=== PATIENT | male | born 1940 | race Caucasian/White ===

== ENCOUNTER 2017-12-08 17:58 | Inpatient (IN) | payer OTHER, BC ==
--- NOTE | 2017-12-08 18:09 | PDOC ---
Rapid Medical Evaluation Chief Complaint: Revisit, Lab Variance Time Seen by Provider: 12/08/17 18:06 Medical Evaluation: Allergies Allergy/AdvReac Type Severity Reaction Status Date / Time No Known Drug Allergies Allergy Verified 12/08/17 18:06 12/08/17 18:07 Pt c/o: sent from dr overton for sodium of 117, pt has no complaints , Pt on brief exam: vss Pt ordered for: labs, ekg , urine pt to proceed to the ED: Discharge Disposition - Diagnosis Hyponatremia - Referrals - Patient Instructions - Post Discharge Activity
[2017-12-08 18:11] VITALS: BMI 25.1
--- NOTE | 2017-12-08 18:47 | PDOC ---
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 According to the patient his sodium high. On presentation the patient has no complaints. He does state that a few weeks ago he fell and hit his head, suffering a concussion, for which he saw his PCP and had an outpatient Head CT that was negative. He does note that he started a new diuretic recently and has been urinating more that normal. The patient denies chest pain, shortness of breath, headache and dizziness. Denies fever, chills, nausea, vomiting, diarrhea or constipation. Denies dysuria , urgency and hematuria. Allergies: None Past surgical history: partial hip replacement, appendectomy Social History: No alcohol, tobacco or drug use reported PMD: Dr. 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) - Any Emergencies please call [phone] <Zander Sterling - Last Filed: 12/09/17 01:07> <Jony Padilla - Last Filed: 12/09/17 01:44> - General Chief Complaint: Revisit, Lab Variance Stated Complaint: PCP SENT/FALL Time Seen by Provider: 12/08/17 18:06 Past History <Zander Sterling - Last Filed: 12/09/17 01:07> - Past Medical History Anemia: No Asthma: No Cancer: No Cardiac Disorders: No CVA: No COPD: No CHF: No Dementia: No Diabetes: Yes GI Disorders: No Disorders: No HTN: Yes Hypercholesterolemia: No Liver Disease: No Seizures: No Thyroid Disease: No - Surgical History Appendectomy: Yes Cardiac Surgery: (angiogram- neg) Orthopedic Surgery: Yes (partial hip replacement) - Suicide/Smoking/Psychosocial Hx Smoking History: Unknown if ever smoked Hx Alcohol Use: No Drug/Substance Use Hx: No Substance Use Type: None <Jony Padilla - Last Filed: 12/09/17 01:44> - Past Medical History Allergies/Adverse Reactions: Allergies Allergy/AdvReac Type Severity Reaction Status Date / Time No Known Drug Allergies Allergy Verified 12/08/17 18:06 Home Medications: Ambulatory Orders Allopurinol [Zyloprim -] 100 mg PO DAILY 10/11/15 Aspirin [ASA -] 81 mg PO DAILY 10/11/15 Atorvastatin Ca [Lipitor] 80 mg PO HS 10/11/15 Cholecalciferol (Vitamin D3) [Vitamin D3] 3,000 unit PO DAILY 10/11/15 Docusate Sodium [Colace -] 300 mg PO HS 10/11/15 Ferrous Sulfate [Feosol] 325 mg PO BID 10/11/15 Insulin Glargine,Hum.rec.anlog [Lantus Solostar PEN (NF)] 21 units SQ HS Insulin Lispro [Humalog] 0 unit SQ QID PRN 10/11/15 Lisinopril [Zestril] 20 mg PO DAILY 10/11/15 Review of Systems - Review of Systems Able to Perform ROS?: Yes Comments:: 12/08/17 19:26 CONSTITUTIONAL: No fever, no chills, no fatigue EYES: No visual changes ENT: No ear pain, no sore throat CARDIOVASCULAR: No chest pain, no palpitations RESPIRATORY: No cough, no SOB GI: No abdominal pain, no nausea, no vomiting, no constipation, no diarrhea GENITOURINARY: No dysuria, no frequency, no hematuria MUSKULOSKELETAL: No backpain, no joint pain, no myalgias SKIN: No rash NEURO: No headache <Zander Sterling - Last Filed: 12/09/17 01:07> *Physical Exam - Vital Signs Last Vital Signs Temp Pulse Resp BP Pulse Ox 81 18 151/64 100 12/08/17 18:10 12/08/17 18:10 12/08/17 18:10 12/08/17 18:10 <Zander Sterling - Last Filed: 12/09/17 01:07> - Vital Signs Last Vital Signs Temp Pulse Resp BP Pulse Ox 81 18 151/64 100 12/08/17 18:10 12/08/17 18:10 12/08/17 18:10 12/08/17 18:10 - Physical Exam Comments: 12/09/17 01:42 Patient is awake and alert, frail-appearing, in no distress Normocephalic; + and approximately 1 cm scab is noted to the left parieto- occipital area without bony crepitus or step-off; Extraocular movements are intact bilaterally; right pupil is 1 mm and poorly reactive, left pupil is 2 mm and reactive; CTA RRR, 4/6 holosystolic murmurs noted Abdomen is soft, nontender, nondistended Cranial nerves II through XII grossly intact; motor is 5 of 54; no pronation drift; patient is a no 3; ambulates with assistance of a walker <Jony Padilla - Last Filed: 12/09/17 01:44> Heart Score/ECG Review #1 ECG reviewed & interpreted by me at: 23:13 12/08/17 22:53 Vent. Rate: 64 bpm PA interval: 236 ms Sinus rhythm with marked sinus arrhythmia with 1st degree AV block <Zander Sterling - Last Filed: 12/09/17 01:07> ED Treatment Course - LABORATORY CBC & Chemistry Diagram: 12/08/17 20:13 12/08/17 20:18 <Zander Sterling - Last Filed: 12/09/17 01:07> - LABORATORY CBC & Chemistry Diagram: 12/08/17 20:13 12/08/17 20:18 <Jony Padilla - Last Filed: 12/09/17 01:44> Medical Decision Making - Medical Decision Making 12/09/17 01:43 Patient is a 77-year-old male with history of hypertension and diabetes who presents to the ER for hyponatremia 117 which is likely iatrogenic in nature due to over diuresis with furosemide. Patient reports intermittent memory lapses but denies seizure-like activity or headache. CT of head shows no evidence of acute intracranial pathology. Repeat sodium was noted to be 122. Will initiate a normal saline drip at 75 mL an hour. Will restrict free water intake. Will admit. <Jony Padilla - Last Filed: 12/09/17 01:44> *DC/Admit/Observation/Transfer - Attestations Scribe Attestion: 12/08/17 19:27 Documentation prepared by Zander Sterling, acting as adjunct faculty for medical terminology for Jony Padilla MD <Zander Sterling - Last Filed: 12/09/17 01:07> - Discharge Dispostion Decision to Admit order: Yes - Attestations Physician Attestion: 12/08/17 23:16 The documentation was prepared by the scribe under my direct supervision. I have reviewed the documentation which correctly represents the findings, medical decision-making and critical action taken by me. <Jony Padilla - Last Filed: 12/09/17 01:44> Diagnosis at time of Disposition: Hyponatremia CKD (chronic kidney disease) Qualifiers: Chronic kidney disease stage: unspecified stage Qualified Code(s): N18.9 - Chronic kidney disease, unspecified - Discharge Dispostion Condition at time of disposition: Fair
[2017-12-08 20:27] LABS: BASO % 0.6 % (0-2.0); EOS % 1.7 % (0-4.5); HEMATOCRIT 28.4 % (35.4-49); HEMOGLOBIN 9.6 GM/dL (11.7-16.9); LYMPH % 8.6 % (8-40); MCHC 33.9 g/dl (32.0-35.9); MEAN CELL VOLUME 88.5 fl (80-96); MEAN PLT VOLUME 8.5 fl (7.5-11.1); MONO % 5.1 % (3.8-10.2); PLATELET COUNT 185 K/MM3 (134-434); RDW 14.7 % (11.9-15.9); WHITE BLOOD COUNT 6.3 K/mm3 (4.0-10.0)
[2017-12-08] MEDS: SODIUM CHLORIDE 1,000 ML IV SCH (20:31)
[2017-12-08 21:11] LABS: ALBUMIN 3.9 g/dl (3.4-5.0); ALK PHOS 109 U/L (45-117); ANION GAP 9 MMOL/L (8-16); BILIRUBIN,TOTAL 0.6 mg/dL (0.2-1); BLOOD UREA NITROGEN 54 mg/dL (7-18); CHLORIDE 90 mmol/L (98-107); CO2 23 mmol/L (21-32); CREATININE 1.8 mg/dL (0.55-1.3); GLUCOSE,RANDOM 212 mg/dL (74-106); MAGNESIUM 1.8 mg/dL (1.8-2.4); POTASSIUM 4.4 mmol/L (3.5-5.1); SGOT/AST 51 U/L (15-37); SGPT/ALT 40 U/L (13-61); SODIUM 122 mmol/L (136-145); TOT PROT 6.7 g/dl (6.4-8.2)
[2017-12-08 21:43] LABS: URINE APPEARANCE CLEAR; URINE BILIRUBIN NEGATIVE (<2.0 mg/dL); URINE COLOR COLORLESS; URINE GLUCOSE (UA) NEGATIVE (NEGATIVE); URINE KETONE NEGATIVE (NEGATIVE); URINE LEUK ESTERASE NEGATIVE (NEGATIVE); URINE NITRITE NEGATIVE (NEGATIVE); URINE PROTEIN NEGATIVE (NEGATIVE); URINE UROBILINOGEN NEGATIVE mg/dL (0.2-1.0)
[2017-12-09 08:57] LABS: HEMATOCRIT 29.4 % (35.4-49); MCH 30.6 pg (25.7-33.7); MCHC 34.2 g/dl (32.0-35.9); MEAN CELL VOLUME 89.3 fl (80-96); MEAN PLT VOLUME 7.8 fl (7.5-11.1); PLATELET COUNT 169 K/MM3 (134-434); RBC 3.29 M/mm3 (4.00-5.60); RDW 14.9 % (11.9-15.9); WHITE BLOOD COUNT 4.4 K/mm3 (4.0-10.0)
--- NOTE | 2017-12-09 09:22 | EKG ---
Test Reason : Blood Pressure : / mmHG Vent. Rate : 064 BPM Atrial Rate : 064 BPM P-R Int : 236 ms QRS Dur : 092 ms QT Int : 392 ms P-R-T Axes : 070 046 040 degrees QTc Int : 404 ms POOR DATA QUALITY, INTERPRETATION MAY BE ADVERSELY AFFECTED SINUS RHYTHM WITH MARKED SINUS ARRHYTHMIA WITH 1ST DEGREE A-V BLOCK OTHERWISE NORMAL ECG WHEN COMPARED WITH ECG OF 17-OCT-2015 11:48, [place] INTERVAL HAS INCREASED NONSPECIFIC T WAVE ABNORMALITY, IMPROVED IN INFERIOR LEADS Confirmed by CONCEPCIÓN MAYO MD ([id number]) on 12/09/2017 9:21:49 AM Referred By: Confirmed By:CONCEPCIÓN MAYO MD
[2017-12-09 09:24] LABS: ALK PHOS 109 U/L (45-117); ANION GAP 8 MMOL/L (8-16); BILIRUBIN,TOTAL 0.5 mg/dL (0.2-1); BLOOD UREA NITROGEN 44 mg/dL (7-18); CHLORIDE 98 mmol/L (98-107); CO2 24 mmol/L (21-32); CREATININE 1.6 mg/dL (0.55-1.3); GLUCOSE,RANDOM 147 mg/dL (74-106); POTASSIUM 3.9 mmol/L (3.5-5.1); SGOT/AST 42 U/L (15-37); SGPT/ALT 37 U/L (13-61); SODIUM 130 mmol/L (136-145); TOT PROT 6.7 g/dl (6.4-8.2)
[2017-12-09] MEDS: LISINOPRIL 20 MG TABLET (FP) PO SCH (10:19)
[2017-12-09] MEDS: ALLOPURINOL 100 MG TABLET (FP) PO SCH (10:19)
[2017-12-09] MEDS: ASPIRIN 81 MG CHEWABLE TABLETS PO SCH (10:19)
[2017-12-09] MEDS: INSULIN SLIDING SCALE (NOVOLOG) 1 VIAL SQ SCH ×3 (12:06→21:59)
--- NOTE | 2017-12-09 12:51 | HP ---
Admitting History and Physical - Primary Care Physician PCP: Vinicius Carroll - Admission Chief Complaint: Low sodium History of Present Illness: Pt went to Endo and was found to have sodium of 117; pt was referred to ER. In ER sodium was 122. Pt was admitted for Rx, started on NS drip. Pt with increased PO water intake at home. History Source: Patient - Past Medical History Cardiovascular: Yes: Aortic Stenosis (mild), CAD (non-obstructive, s/p cardiac cath), Hyperlipdemia Renal/: Yes: Renal Failure Endocrine: Yes: Diabetes Mellitus - Past Surgical History Past Surgical History: Yes: Hernia Repair - Smoking History Smoking history: Unknown if ever smoked - Alcohol/Substance Use Hx Alcohol Use: No Home Medications - Allergies Allergies/Adverse Reactions: Allergies Allergy/AdvReac Type Severity Reaction Status Date / Time No Known Drug Allergies Allergy Verified 12/08/17 18:06 - Home Medications Home Medications: Ambulatory Orders Allopurinol [Zyloprim -] 100 mg PO DAILY 10/11/15 Aspirin [ASA -] 81 mg PO DAILY 10/11/15 Atorvastatin Ca [Lipitor] 80 mg PO HS 10/11/15 Cholecalciferol (Vitamin D3) [Vitamin D3] 3,000 unit PO DAILY 10/11/15 Docusate Sodium [Colace -] 300 mg PO HS 10/11/15 Ferrous Sulfate [Feosol] 325 mg PO BID 10/11/15 Insulin Glargine,Hum.rec.anlog [Lantus Solostar PEN (NF)] 21 units SQ HS Insulin Lispro [Humalog] 0 unit SQ QID PRN 10/11/15 Lisinopril [Zestril] 20 mg PO DAILY 10/11/15 Review of Systems - Review of Systems Constitutional: denies: Chills, Fever Eyes: denies: Blurred Vision, Double Vision HENT: denies: Ear Discharge, Ear Pain, Nasal Congestion, Throat Pain Neck: denies: Pain on Movement, Stiffness Cardiovascular: denies: Chest Pain, Edema Respiratory: denies: Cough, SOB, Wheezing Gastrointestinal: denies: Abdominal Pain, Diarrhea, Nausea, Vomiting Genitourinary: denies: Burning, Discharge Musculoskeletal: denies: Back Pain, Joint Swelling Neurological: reports: Weakness. denies: Change in Speech, Confusion, Numbness , Seizure, Tremors Endocrine: denies: Excessive Sweating, Intolerance to Cold Hematology/Lymphatic: denies: Easily Bruised, Excessive Bleeding Psychiatric: denies: Anxiety, Depression Physical Examination Vital Signs: Vital Signs Temperature 98.1 F 12/09/17 09:00 Pulse Rate 74 12/09/17 09:00 Respiratory Rate 18 12/09/17 09:00 Blood Pressure 130/60 12/09/17 09:00 O2 Sat by Pulse Oximetry (%) 100 12/09/17 09:00 Constitutional: Yes: No Distress, Calm Eyes: Yes: Conjunctiva Clear, EOM Intact, PERRL HENT: Yes: Normocephalic. No: Epistaxis, Rhinnorhea Neck: Yes: Trachea Midline. No: Lymphadenopathy Cardiovascular: Yes: Regular Rate and Rhythm, S1, S2 Respiratory: Yes: Regular, CTA Bilaterally. No: Rales Gastrointestinal: Yes: Normal Bowel Sounds, Soft. No: Tenderness ...Rectal Exam: Yes: Deferred Renal/: No: CVA Tenderness - Left, CVA Tenderness - Right Musculoskeletal: No: Joint Stiffness, Joint Swelling Edema: No Neurological: Yes: Alert, Oriented, Other (motor and sensory examination is symmetric in UE/ LE/ face) Labs: CBC, BMP 12/09/17 08:45 12/09/17 08:45 Imaging - Results X-ray: Report Reviewed Cat Scan: Report Reviewed Problem List - Problems (1) Hyponatremia Code(s): E87.1 - HYPO-OSMOLALITY AND HYPONATREMIA (2) CKD (chronic kidney disease) Code(s): N18.9 - CHRONIC KIDNEY DISEASE, UNSPECIFIED Qualifiers: Chronic kidney disease stage: unspecified stage Qualified Code(s): N18.9 - Chronic kidney disease, unspecified (3) CAD (coronary artery disease) Code(s): I25.10 - ATHSCL HEART DISEASE OF [place] CORONARY ARTERY W/O ANG PCTRS (4) Diabetes mellitus Code(s): E11.9 - TYPE 2 DIABETES MELLITUS WITHOUT COMPLICATIONS (5) Inguinal hernia Code(s): K40.90 - UNIL INGUINAL HERNIA, W/O OBST OR GANGR, NOT SPCF RECUR (6) Anemia Code(s): D64.9 - ANEMIA, UNSPECIFIED Assessment/Plan NS (low rate) To monitor NA level Reanl consult AM labs
--- NOTE | 2017-12-09 15:12 | CONSULT ---
Consult Consult Specialty:: Nephrology ( Eliseo/ Brandon) Reason for Consultation:: Hyponatremia - History of Present Illness Chief Complaint: The patient is a 77 year old male, with a significant past medical history of HTN and Type 2 Diabetes mellitus, who presented to the ED with losw serum sodium. The patient has underlying CKD 3, CAD, HTN, HLD, Valvular heart disease - History Source History Provided By: Patient - Past Medical History Cardio/Vascular: Yes: Aortic Stenosis (mild), CAD (non-obstructive, s/p cardiac cath), Hyperlipdemia Renal/: Yes: Renal Failure Endocrine: Yes: Diabetes Mellitus - Alcohol/Substance Use Hx Alcohol Use: No - Smoking History Smoking history: Unknown if ever smoked Home Medications - Allergies Allergies/Adverse Reactions: Allergies Allergy/AdvReac Type Severity Reaction Status Date / Time No Known Drug Allergies Allergy Verified 12/08/17 18:06 - Home Medications Home Medications: Ambulatory Orders Allopurinol [Zyloprim -] 100 mg PO DAILY 10/11/15 Aspirin [ASA -] 81 mg PO DAILY 10/11/15 Atorvastatin Ca [Lipitor] 80 mg PO HS 10/11/15 Cholecalciferol (Vitamin D3) [Vitamin D3] 3,000 unit PO DAILY 10/11/15 Docusate Sodium [Colace -] 300 mg PO HS 10/11/15 Ferrous Sulfate [Feosol] 325 mg PO BID 10/11/15 Insulin Glargine,Hum.rec.anlog [Lantus Solostar PEN (NF)] 21 units SQ HS Insulin Lispro [Humalog] 0 unit SQ QID PRN 10/11/15 Lisinopril [Zestril] 20 mg PO DAILY 10/11/15 Review of Systems - Review of Systems Constitutional: reports: No Symptoms, Weakness. denies: Fever HENT: denies: No Symptoms Neck: denies: No Symptoms Cardiovascular: denies: Chest Pain, Palpitations, Shortness of Breath Respiratory: denies: Cough Gastrointestinal: denies: Abdominal Pain, Constipation Genitourinary: denies: Burning Musculoskeletal: denies: Back Pain, Joint Swelling Neurological: denies: Change in LOC, Change in Speech Hematology/Lymphatic: denies: Swollen Glands Physical Exam Vital Signs: Vital Signs Temperature 98.1 F 12/09/17 09:00 Pulse Rate 74 12/09/17 09:00 Respiratory Rate 18 12/09/17 09:00 Blood Pressure 130/60 12/09/17 09:00 O2 Sat by Pulse Oximetry (%) 100 12/09/17 09:00 Constitutional: Yes: No Distress, Calm, Pallor Eyes: Yes: Conjunctiva Clear HENT: Yes: Normocephalic Neck: Yes: Trachea Midline Cardiovascular: Yes: Regular Rate and Rhythm, Tachycardia, S1, S2 Respiratory: Yes: CTA Bilaterally, Diminished, Poor Air Entry. No: Rales, Rhonchi Gastrointestinal: Yes: Normal Bowel Sounds, Soft Renal/: No: CVA Tenderness - Left, CVA Tenderness - Right Neurological: Yes: Alert, Oriented Labs: CBC, BMP 12/09/17 08:45 12/09/17 08:45 Problem List - Problems (1) CKD (chronic kidney disease) Code(s): N18.9 - CHRONIC KIDNEY DISEASE, UNSPECIFIED Qualifiers: Chronic kidney disease stage: unspecified stage Qualified Code(s): N18.9 - Chronic kidney disease, unspecified (2) Hyponatremia Code(s): E87.1 - HYPO-OSMOLALITY AND HYPONATREMIA (3) Acute on chronic kidney failure Code(s): N17.9 - ACUTE KIDNEY FAILURE, UNSPECIFIED; N18.9 - CHRONIC KIDNEY DISEASE, UNSPECIFIED (4) Anemia Code(s): D64.9 - ANEMIA, UNSPECIFIED (5) CAD (coronary artery disease) Code(s): I25.10 - ATHSCL HEART DISEASE OF [place] CORONARY ARTERY W/O ANG PCTRS (6) Diabetes mellitus Code(s): E11.9 - TYPE 2 DIABETES MELLITUS WITHOUT COMPLICATIONS Assessment/Plan The patient is a 77 year old male, with a significant past medical history of HTN and DM2, HLD, CAD...admitted via ED with Acute Hyponatremia. The patient admits to ingestion of large amounts of water. Acute dilutional Hypotonic Hyponatremia... from excess fluid ingestion in this patient with underlying CKD. Will give NSS cautiously. The patient will eventually need to be restarted on a loop diuretic. Will monitor the Real electrolytes with you. Thank you. will follow with you. Annalise Gomes MD
[2017-12-09] MEDS: SODIUM CHLORIDE 1,000 ML IV SCH ×3 (17:19→23:47)
[2017-12-09] MEDS ORDERED: INSULIN (NOVOLOG) ASPART 100 UNITS/ML 10ML VIAL ONE (21:54)
[2017-12-09] MEDS: DOCUSATE SODIUM 100 MG CAPSULE (FP) PO SCH (21:58)
[2017-12-09] MEDS: ATORVASTATIN CA 80 MG TABLET (FP) PO SCH (21:59)
[2017-12-10] MEDS: INSULIN SLIDING SCALE (NOVOLOG) 1 VIAL SQ SCH ×4 (06:26→22:11)
[2017-12-10 07:06] LABS: HEMATOCRIT 27.5 % (35.4-49); HEMOGLOBIN 9.3 GM/dL (11.7-16.9); MCH 30.3 pg (25.7-33.7); MCHC 33.7 g/dl (32.0-35.9); MEAN CELL VOLUME 89.9 fl (80-96); PLATELET COUNT 164 K/MM3 (134-434); RBC 3.06 M/mm3 (4.00-5.60); RDW 15.2 % (11.9-15.9); WHITE BLOOD COUNT 7.1 K/mm3 (4.0-10.0)
[2017-12-10 07:42] LABS: ANION GAP 8 MMOL/L (8-16); BLOOD UREA NITROGEN 46 mg/dL (7-18); CALCIUM 8.6 mg/dL (8.5-10.1); CHLORIDE 97 mmol/L (98-107); CO2 26 mmol/L (21-32); CREATININE 1.6 mg/dL (0.55-1.3); GLUCOSE,RANDOM 113 mg/dL (74-106); SODIUM 130 mmol/L (136-145)
[2017-12-10 08:25] LABS: CHOLESTEROL 126 mg/dL (50-200); HDL CHOLESTEROL 82 mg/dL (40-60); TRIGLYCERIDES 34 mg/dL (0-150)
--- NOTE | 2017-12-10 10:50 | PN ---
Progress Note, Physician History of Present Illness: Pt is feeling better today, stronger. Pt w/o confusion, CP, palp, SOB, abd pain. - Current Medication List Current Medications: Active Medications Allopurinol (Zyloprim -) 100 mg PO DAILY [facility] Last Admin: 12/09/17 10:19 Dose: 100 mg Aspirin (Asa -) 81 mg PO DAILY [facility] Last Admin: 12/09/17 10:19 Dose: 81 mg Atorvastatin Calcium (Lipitor -) 80 mg PO [facility] Last Admin: 12/09/17 21:59 Dose: 80 mg Docusate Sodium (Colace -) 300 mg PO HS [facility] Last Admin: 12/09/17 21:58 Dose: 300 mg Sodium Chloride (Normal Saline -) 1,000 mls @ 42 mls/hr IV ASDIR [facility] Last Admin: 12/09/17 23:47 Dose: 42 mls/hr Insulin Aspart (Novolog Vial Sliding Scale -) 1 vial SQ [facility]; Protocol Last Admin: 12/10/17 06:26 Dose: Not Given Lisinopril (Prinivil) 20 mg PO DAILY [facility] Last Admin: 12/09/17 10:19 Dose: 20 mg - Objective Vital Signs: Vital Signs Temperature 97.3 F L 12/10/17 06:00 Pulse Rate 64 12/10/17 06:00 Respiratory Rate 20 12/10/17 06:00 Blood Pressure 122/70 12/10/17 06:00 O2 Sat by Pulse Oximetry (%) 100 12/09/17 21:00 Constitutional: Yes: No Distress, Calm Cardiovascular: Yes: Regular Rate and Rhythm, S1, S2 Respiratory: Yes: Regular, CTA Bilaterally. No: Rales Gastrointestinal: Yes: Normal Bowel Sounds, Soft. No: Tenderness Edema: No Neurological: Yes: Alert, Oriented Labs: CBC, BMP 12/10/17 06:30 12/10/17 06:30 Problem List - Problems (1) Hyponatremia Code(s): E87.1 - HYPO-OSMOLALITY AND HYPONATREMIA (2) CKD (chronic kidney disease) Code(s): N18.9 - CHRONIC KIDNEY DISEASE, UNSPECIFIED Qualifiers: Chronic kidney disease stage: unspecified stage Qualified Code(s): N18.9 - Chronic kidney disease, unspecified (3) CAD (coronary artery disease) Code(s): I25.10 - ATHSCL HEART DISEASE OF [place] CORONARY ARTERY W/O ANG PCTRS (4) Diabetes mellitus Code(s): E11.9 - TYPE 2 DIABETES MELLITUS WITHOUT COMPLICATIONS (5) Inguinal hernia Code(s): K40.90 - UNIL INGUINAL HERNIA, W/O OBST OR GANGR, NOT SPCF RECUR (6) Anemia Code(s): D64.9 - ANEMIA, UNSPECIFIED Assessment/Plan NS (low rate) Sodium level is better. To monitor NA level OOBTC Renal consult is appreciated AM labs
[2017-12-10] MEDS: ALLOPURINOL 100 MG TABLET (FP) PO SCH (10:54)
[2017-12-10] MEDS: LISINOPRIL 20 MG TABLET (FP) PO SCH (10:54)
[2017-12-10] MEDS: ASPIRIN 81 MG CHEWABLE TABLETS PO SCH (10:55)
--- NOTE | 2017-12-10 13:22 | PN ---
Progress Note (short form) - Note Progress Note: Renal follow up for Hyponatremia Pt seen and examined at the bedside no acute complaints no N/V/D, SCOTT, CP, SOB Vital Signs Temperature 97.3 F L 12/10/17 06:00 Pulse Rate 64 12/10/17 06:00 Respiratory Rate 20 12/10/17 06:00 Blood Pressure 122/70 12/10/17 06:00 O2 Sat by Pulse Oximetry (%) 100 12/09/17 21:00 NAD CTA RRR soft NT/ND no LE edema CBC, BMP 12/10/17 06:30 12/10/17 06:30 Current Medications Allopurinol (Zyloprim -) 100 mg PO DAILY [facility] Last Admin: 12/10/17 10:54 Dose: 100 mg Aspirin (Asa -) 81 mg PO DAILY [facility] Last Admin: 12/10/17 10:55 Dose: 81 mg Atorvastatin Calcium (Lipitor -) 80 mg PO HS [facility] Last Admin: 12/09/17 21:59 Dose: 80 mg Docusate Sodium (Colace -) 300 mg PO HS [facility] Last Admin: 12/09/17 21:58 Dose: 300 mg Sodium Chloride (Normal Saline -) 1,000 mls @ 42 mls/hr IV ASDIR [facility] Last Admin: 12/09/17 23:47 Dose: 42 mls/hr Insulin Aspart (Novolog Vial Sliding Scale -) 1 vial SQ ACHS [facility]; Protocol Last Admin: 12/10/17 06:26 Dose: Not Given Lisinopril (Prinivil) 20 mg PO DAILY [facility] Last Admin: 12/10/17 10:54 Dose: 20 mg 77 year old male, with a significant past medical history of HTN and DM2, HLD, CAD...admitted via ED with Acute Hyponatremia. #Acute Hyponatremia #CKD #Hypertension Serum Na improving continue NS for now Trend Na daily if serum na stable can anticipate discharge tomorrow fluid restriction of 1L Tc Taylor DO
[2017-12-10] MEDS: SODIUM CHLORIDE 1,000 ML IV SCH (16:35)
[2017-12-10] MEDS: DOCUSATE SODIUM 100 MG CAPSULE (FP) PO SCH (22:11)
[2017-12-10] MEDS: ATORVASTATIN CA 80 MG TABLET (FP) PO SCH (22:11)
[2017-12-11] MEDS: SODIUM CHLORIDE 1,000 ML IV SCH (06:29)
[2017-12-11] MEDS: INSULIN SLIDING SCALE (NOVOLOG) 1 VIAL SQ SCH ×2 (06:30→12:00)
[2017-12-11 08:31] LABS: HEMATOCRIT 27.9 % (35.4-49); HEMOGLOBIN 9.6 GM/dL (11.7-16.9); MCH 30.6 pg (25.7-33.7); MCHC 34.2 g/dl (32.0-35.9); MEAN CELL VOLUME 89.4 fl (80-96); MEAN PLT VOLUME 8.7 fl (7.5-11.1); PLATELET COUNT 178 K/MM3 (134-434); RBC 3.12 M/mm3 (4.00-5.60); RDW 15.1 % (11.9-15.9); WHITE BLOOD COUNT 5.4 K/mm3 (4.0-10.0)
[2017-12-11] MEDS ORDERED: PT OWN MED DRAWER 7, Y5N ONE (10:06)
[2017-12-11 10:10] LABS: ANION GAP 7 MMOL/L (8-16); BLOOD UREA NITROGEN 41 mg/dL (7-18); CALCIUM 8.6 mg/dL (8.5-10.1); CHLORIDE 103 mmol/L (98-107); CO2 23 mmol/L (21-32); CREATININE 1.5 mg/dL (0.55-1.3); GLUCOSE,RANDOM 99 mg/dL (74-106); POTASSIUM 4.2 mmol/L (3.5-5.1); SODIUM 134 mmol/L (136-145)
[2017-12-11] MEDS: ALLOPURINOL 100 MG TABLET (FP) PO SCH (10:14)
[2017-12-11] MEDS: LISINOPRIL 20 MG TABLET (FP) PO SCH (10:14)
[2017-12-11] MEDS: ASPIRIN 81 MG CHEWABLE TABLETS PO SCH (10:14)
--- NOTE | 2017-12-11 11:27 | PN ---
Progress Note (short form) - Note Progress Note: Renal follow up for Hyponatremia Pt seen and examined at the bedside no acute complaints feels well ready to go home no sob, cp, abd pain, N/V/D Vital Signs Temperature 97.3 F L 12/11/17 05:29 Pulse Rate 69 12/11/17 05:29 Respiratory Rate 20 12/11/17 05:29 Blood Pressure 144/76 12/11/17 05:29 O2 Sat by Pulse Oximetry (%) 100 12/10/17 21:00 Intake & Output 12/08/17 12/09/17 12/10/17 12/11/17 23:59 23:59 23:59 23:59 Intake Total 2845 2370 500 Balance 2845 2370 500 Weight 79.379 kg NAD CTA RRR soft NT/ND no LE edema CBC, BMP 12/11/17 06:30 12/11/17 06:30 Current Medications Allopurinol (Zyloprim -) 100 mg PO DAILY [facility] Last Admin: 12/11/17 10:14 Dose: 100 mg Aspirin (Asa -) 81 mg PO DAILY [facility] Last Admin: 12/11/17 10:14 Dose: 81 mg Atorvastatin Calcium (Lipitor -) 80 mg PO HS [facility] Last Admin: 12/10/17 22:11 Dose: 80 mg Docusate Sodium (Colace -) 300 mg PO HS [facility] Last Admin: 12/10/17 22:11 Dose: 300 mg Sodium Chloride (Normal Saline -) 1,000 mls @ 42 mls/hr IV ASDIR [facility] Last Admin: 12/11/17 06:29 Dose: Not Given Insulin Aspart (Novolog Vial Sliding Scale -) 1 vial SQ ACHS [facility]; Protocol Last Admin: 12/11/17 06:30 Dose: Not Given Lisinopril (Prinivil) 20 mg PO DAILY [facility] Last Admin: 12/11/17 10:14 Dose: 20 mg 77 year old male, with a significant past medical history of HTN and DM2, HLD, CAD...admitted via ED with Acute Hyponatremia. #Acute Hyponatremia #CKD #Hypertension serum Na now improved to near normal can d/c IVF stable for discharge home with outpatient follow up can resume Lasix 40mg once daily at home, advised to drink water as per thirst at home to follow up in our office in 1 week for repeat labs asked to call if any questions or if he feels unwell after discharge Tc Taylor DO
--- NOTE | 2017-12-11 11:53 | DS ---
Physical Examination Vital Signs: Vital Signs Temperature 97.3 F L 12/11/17 05:29 Pulse Rate 69 12/11/17 05:29 Respiratory Rate 20 12/11/17 05:29 Blood Pressure 144/76 12/11/17 05:29 O2 Sat by Pulse Oximetry (%) 100 12/10/17 21:00 Findings/Remarks: Pt w/o SOB, dizziness, CP, palp, abd pain, nausea, vomiting Constitutional: Yes: No Distress Cardiovascular: Yes: Regular Rate and Rhythm, S1, S2 Respiratory: Yes: Regular, CTA Bilaterally. No: Rales Gastrointestinal: Yes: Normal Bowel Sounds, Soft. No: Tenderness Edema: No Neurological: Yes: Alert, Oriented Labs: CBC, BMP 12/11/17 06:30 12/11/17 06:30 Discharge Summary Reason For Visit: CKD Current Active Problems CKD (chronic kidney disease) (Acute) Hyponatremia (Acute) Procedures: Principal: Head CT scan. CXR Hospital Course: Pt came to ER from Endo office with low sodium (117); pt was admitted and started on IVF (NS), with slow improvement in sodium. Pt was seen by Renal (Dr. Gomes/ [place]). Pt clinically feels back to normal. Pt was cleared for DC by Renal with fluid restriction and starting on Lasix and office f/u. Condition: Improved - Instructions Referrals: Annalise Gomes MD [Staff Physician] - (next week) Vinicius Carroll MD [Primary Care Provider] - (1-2 weeks) Disposition: HOME - Home Medications Comprehensive Discharge Medication List: Ambulatory Orders see discharge instructions
[2017-12-11] MEDS ORDERED: INSULIN (NOVOLOG) ASPART 100 UNITS/ML 10ML VIAL ONE (12:00)
[2017-12-11 12:57] VITALS: BP 132/78; PULSE 81; TEMP 98.3
== END 2017-12-11 14:48 | disposition home or self-care (01) | DRG 641 ==
LOC: JER 17:58 → JERBED 23:17 → UNDOADMIN 12-09 00:02 → JERBED 12-09 00:02 → J5S 12-09 03:20
PROVIDERS: ADMIT Specialist; ATTEND Specialist
DX: E87.1 Hypo-osmolality and hyponatremia (principal); Z79.4 Long term (current) use of insulin; I35.0 Nonrheumatic aortic (valve) stenosis; I25.10 Atherosclerotic heart disease of native coronary artery without angina pectoris; E78.5 Hyperlipidemia, unspecified; D64.9 Anemia, unspecified; K40.90 Unilateral inguinal hernia, without obstruction or gangrene, not specified as recurrent; E11.22 Type 2 diabetes mellitus with diabetic chronic kidney disease; I12.9 Hypertensive chronic kidney disease with stage 1 through stage 4 chronic kidney disease, or unspecified chronic kidney disease; N18.3 Chronic kidney disease, stage 3 (moderate)
CPT/HCPCS: 36415; 70450-TC; 71045-TC-FY; 80048; 80053; 80061; 81003; 82962; 83721; 83735; 83930; 83935; 84300; 84443; 85025; 85027; 93005; 93010; 97116-GP; 97161-GP; 99283-25; J7030

== ENCOUNTER 2018-10-26 10:56 | Emergency (ER) | payer OTHER, BC ==
[2018-10-26] MEDS ORDERED: DIPHTH,PERTUSS(ACELL),TET 0.5 ML DISP.SYRIN IM ONE ×2 (11:41→12:30)
--- NOTE | 2018-10-26 11:48 | PDOC ---
Documentation entered by Angelika Elizabeth SCRIBE, acting as scribe for Phani Norman MD. Phani Norman MD: This documentation has been prepared by the Glenn brady Sammi, SCRIBE, under my direction and personally reviewed by me in its entirety. I confirm that the documentation accurately reflects all work, treatment, procedures, and medical decision making performed by me. History of Present Illness - General Chief Complaint: Injury Stated Complaint: LACERATION Time Seen by Provider: 10/26/18 11:37 - History of Present Illness Initial Comments: 10/26/18 11:48 78 M with h/o CKD 3, CAD, HTN, HLD, Valvular heart disease not on AC, presenting to ED with laceration to scalp. Pt states that he was putting dishes away when a glass coffee pot fell on his head, shattering. Pt denies LOC. Denies falling. Pt denies SCOTT/N/V. Denies neck pain. Past History - Past Medical History Allergies/Adverse Reactions: Allergies Allergy/AdvReac Type Severity Reaction Status Date / Time No Known Drug Allergies Allergy Verified 12/08/17 18:06 Home Medications: Ambulatory Orders RX: Allopurinol [Zyloprim -] 100 mg PO DAILY 10/11/15 RX: Aspirin [ASA -] 81 mg PO DAILY 10/11/15 RX: Atorvastatin Ca [Lipitor] 80 mg PO HS 10/11/15 RX: Cholecalciferol (Vitamin D3) [Vitamin D3] 3,000 unit PO DAILY 10/11/15 RX: Docusate Sodium [Colace -] 300 mg PO HS 10/11/15 RX: Ferrous Sulfate [Feosol] 325 mg PO BID 10/11/15 Amlodipine Besylate [Norvasc -] 2.5 mg PO DAILY 10/26/18 Anemia: No Asthma: No Cancer: No Cardiac Disorders: No CVA: No COPD: No CHF: No Dementia: No Diabetes: Yes GI Disorders: No Disorders: No HTN: Yes Hypercholesterolemia: No Liver Disease: No Seizures: No Thyroid Disease: No - Surgical History Appendectomy: Yes Cardiac Surgery: (angiogram- neg) Orthopedic Surgery: Yes (partial hip replacement) - Immunization History Td Vaccination: No TDAP Vaccination: No Immunization Up to Date: Yes (unknown) - Suicide/Smoking/Psychosocial Hx Smoking History: Never smoked Information on smoking cessation initiated: Yes Hx Alcohol Use: No Drug/Substance Use Hx: No Substance Use Type: None Review of Systems - Review of Systems Comments:: 10/26/18 11:49 "GENERAL/CONSTITUTIONAL: No fever or chills. No weakness. HEAD, EYES, EARS, NOSE AND THROAT: No change in vision. No ear pain or discharge. No sore throat. CARDIOVASCULAR: No chest pain, no shortness of breath, no loss of consciousness RESPIRATORY: No cough, wheezing, or hemoptysis. GASTROINTESTINAL: No nausea, vomiting, diarrhea or constipation. GENITOURINARY: No dysuria, frequency, or change in urination. MUSCULOSKELETAL: No joint or muscle swelling or pain. No neck or back pain. SKIN: + laceration to forehead NEUROLOGIC: No vertigo, no change in strength/sensation. ENDOCRINE: No increased thirst. No abnormal weight change. HEMATOLOGIC/LYMPHATIC: No anemia, easy bleeding, or history of blood clots. ALLERGIC/IMMUNOLOGIC: No hives or skin allergy. *Physical Exam - Vital Signs Last Vital Signs Temp Pulse Resp BP Pulse Ox 80 18 167/85 10/26/18 11:36 10/26/18 11:36 10/26/18 11:36 - Physical Exam Comments: 10/26/18 11:50 "GENERAL: Awake, alert, and fully oriented, in no acute distress. HEAD: + two 2cm lacs to forehead EYES: PERRLA, EOMI, sclera anicteric, conjunctiva clear ENT: Auricles normal inspection, hearing grossly normal, nares patent, oropharynx clear without exudates. Moist mucosa NECK: Nontender, no stepoffs, Normal ROM, supple, no lymphadenopathy, JVD, or masses LUNGS: Breath sounds equal, clear to auscultation bilaterally. No wheezes, and no crackles HEART: Regular rate and rhythm, normal S1 and S2, no murmurs, rubs or gallops ABDOMEN: Soft, nontender, normoactive bowel sounds. No guarding, no rebound. No masses EXTREMITIES: Normal range of motion, no edema. No clubbing or cyanosis. No cords, erythema, or tenderness NEUROLOGICAL: Cranial nerves II through XII intact. 5/5 strength and sensation in all extremities, Normal speech, normal gait, normal cerebellar function Procedures - Laceration/Wound Repair Anterior Head Wound Length: to 2.5 cm Wound Explored: clean Irrigated w/ Saline: Yes Wound Repaired With: Sutures Suture Size/Type: 4:0 Number of Sutures: 4 Head Wound Length: to 2.5 cm Wound Explored: clean Wound's Depth, Shape: superficial Irrigated w/ Saline: Yes Wound Repaired With: Sutures Suture Size/Type: 4:0 Number of Sutures: 4 Medical Decision Making - Medical Decision Making 10/26/18 11:51 78 M with 2 lacerations to forehead after glass pot fell on his head. - Lacerations repaired with 8 sutures total - CT head - Tdap 10/26/18 12:39 CT unremarkable Pt is well appearing, with normal vitals. Clinically stable for DC at this time. I discussed the physical exam findings, ancillary test results and final diagnoses with the patient. I answered all of the patient's questions. The patient was satisfied with the care received and felt comfortable with the discharge plan and treatment plan. The patient agrees to follow up with the primary care physician within 24-72 hours. *DC/Admit/Observation/Transfer Diagnosis at time of Disposition: Head injury, Laceration - Discharge Dispostion Disposition: HOME - Referrals - Patient Instructions Printed Discharge Instructions: DI for Laceration Repair of the Scalp Additional Instructions: Your sutures must be taken out in 5-7 days. This can be done by your primary doctor or any urgent care or emergency department. If you experience severe headache, vomiting, neck pain, bleeding, or any other concerning symptoms, return to the ER immediately. - Post Discharge Activity - Attestations Physician Attestion: 10/26/18 12:41 I, Dr. Phani Norman MD, attest that this document has been prepared under my direction and personally reviewed by me in its entirety. I further attest, that it accurately reflects all work, treatment, procedures and medical decision -making performed by me.
[2018-10-26] MEDS ORDERED: BACITRACIN 0.9 GM PACKET ONE (13:10)
[2018-10-26 13:59] VITALS: BP 150/61; PULSE 70
== END 2018-10-26 13:14 | disposition home or self-care (01) ==
LOC: JER 10:56
PROC: 3E0234Z Introduction of Serum, Toxoid and Vaccine into Muscle, Percutaneous Approach (ICD-10-PCS; principal; 2018-10-26)
PROC: 0HQ1XZZ Repair Face Skin, External Approach (ICD-10-PCS; 2018-10-26)
DX: S01.81XA Laceration without foreign body of other part of head, initial encounter (principal); W25.XXXA Contact with sharp glass, initial encounter; Y93.G1 Activity, food preparation and clean up; Y92.030 Kitchen in apartment as the place of occurrence of the external cause; Y99.8 Other external cause status; I13.10 Hypertensive heart and chronic kidney disease without heart failure, with stage 1 through stage 4 chronic kidney disease, or unspecified chronic kidney disease; I25.10 Atherosclerotic heart disease of native coronary artery without angina pectoris; Z98.61 Coronary angioplasty status; E11.22 Type 2 diabetes mellitus with diabetic chronic kidney disease; I25.82 Chronic total occlusion of coronary artery; N18.3 Chronic kidney disease, stage 3 (moderate)
CPT/HCPCS: 70450-TC; 90715; 99284-25

== ENCOUNTER 2018-11-03 09:12 | Emergency (ER) | payer OTHER, BC ==
[2018-11-03 09:23] VITALS: BP 143/53; PULSE 80; TEMP 98.1; BMI 31.3
--- NOTE | 2018-11-03 10:15 | PDOC ---
Suture Removal/Wound Check HPI - History of Present Illness Chief Complaint: Suture/Staple Removal(Here) Stated Complaint: SUTURE REMOVAL Time Seen by Provider: 11/03/18 09:25 Treated at: [facility] Date of Last ED visit: 10/26/18 - Previous ED Treatment Type of procedure performed on last visit: Yes: Laceration Repair (8 sutures removed without complication) Tetanus Immunization: Yes: Given at last ED visit Antibiotics Prescribed: No Past History - Past Medical History Allergies/Adverse Reactions: Allergies Allergy/AdvReac Type Severity Reaction Status Date / Time No Known Drug Allergies Allergy Verified 11/03/18 09:17 Home Medications: Ambulatory Orders Allopurinol [Zyloprim -] 100 mg PO DAILY 10/11/15 Aspirin [ASA -] 81 mg PO DAILY 10/11/15 Atorvastatin Ca [Lipitor] 80 mg PO HS 10/11/15 Cholecalciferol (Vitamin D3) [Vitamin D3] 3,000 unit PO DAILY 10/11/15 Docusate Sodium [Colace -] 300 mg PO HS 10/11/15 Ferrous Sulfate [Feosol] 325 mg PO BID 10/11/15 Amlodipine Besylate [Norvasc -] 2.5 mg PO DAILY 10/26/18 Anemia: No Asthma: No Cancer: No Cardiac Disorders: No CVA: No COPD: No CHF: No Dementia: No Diabetes: Yes GI Disorders: No Disorders: No HTN: Yes Hypercholesterolemia: No Liver Disease: No Seizures: No Thyroid Disease: No - Surgical History Appendectomy: Yes Cardiac Surgery: (angiogram- neg) Orthopedic Surgery: Yes (partial hip replacement) - Immunization History Td Vaccination: No TDAP Vaccination: No Immunization Up to Date: Yes (unknown) - Suicide/Smoking/Psychosocial Hx Smoking History: Never smoked Hx Alcohol Use: No Drug/Substance Use Hx: No Substance Use Type: None *Physical Exam - Vital Signs Last Vital Signs Temp Pulse Resp BP Pulse Ox 98.1 F 80 18 143/53 L 100 11/03/18 09:17 11/03/18 09:17 11/03/18 09:17 11/03/18 09:17 11/03/18 09:17 *DC/Admit/Observation/Transfer Diagnosis at time of Disposition: Visit for suture removal - Discharge Dispostion Disposition: HOME Condition at time of disposition: Stable Decision to Admit order: No - Referrals Referrals: Vinicius Carroll MD [Primary Care Provider] - - Patient Instructions Printed Discharge Instructions: DI for Suture Removal - Post Discharge Activity
== END 2018-11-03 10:19 | disposition home or self-care (01) ==
LOC: JERFT 09:12
DX: Z48.02 Encounter for removal of sutures (principal)
CPT/HCPCS: 99281-25